=== PATIENT | female | born 1990 | race Caucasian/White ===

== ENCOUNTER 2016-09-02 10:02 | Emergency (ER) | payer OTHER ==
[~2016-09-02] VITALS: Ht 165.1 cm; Wt 68.0 kg
[~2016-09-02 10:02] MED LIST: ACET50TA PO; AMOX500T PO; IBUP80TA PO; PERC5TAB6 PO; TYLE325T5 PO; VITAPRTA PO; no medications
[2016-09-02] MEDS ORDERED: ONDANSETRON 4MG/2ML VIAL (J2405) IV ONE (11:45)
[2016-09-02] MEDS ORDERED: NS 1,000 ML IV ONE (11:45)
[2016-09-02 12:06] LABS: BASO % 0.3 % (0.0-1.0); EOS # 0.2 K/mm3 (0.0-0.50); EOS % 1.9 % (0.0-3.0); LARGE UNSTAINED CELL # 0.1 K/mm3 (0.0-0.4); LARGE UNSTAINED CELL % 1.1 % (0.0-4.0); LYMPH # 2.2 K/mm3 (1.5-6.5); LYMPH % 27.5 % (24.0-44.0); MEAN CORPUSCULAR HEMOGLOBIN 31.1 pg (27.0-33.0); MEAN CORPUSCULAR HGB CONC 33.9 g/dl (32.0-36.5); MEAN CORPUSCULAR VOLUME 91.8 fl (80.0-96.0); MONO # 0.3 K/mm3 (0.0-0.8); MONO % 4.3 % (0.0-5.0); NEUTROPHILS # 5.2 K/mm3 (1.8-7.7); NEUTROPHILS % 64.9 % (36.0-66.0); PLATELET COUNT, AUTOMATED 202 k/mm3 (150-450); RED CELL DISTRIBUTION WIDTH 12.3 % (11.5-14.5)
[2016-09-02 12:22] LABS: ALBUMIN/GLOBULIN RATIO 1.14 (1.00-1.93); ALKALINE PHOSPHATASE 54 U/L (45-117); ALT/SGPT 21 U/L (12-78); AMYLASE 46 U/L (25-115); ANION GAP 6 MEQ/L (8-16); AST/SGOT 14 U/L (15-37); BILIRUBIN,DIRECT < 0.1 MG/DL (0.0-0.2); BILIRUBIN,TOTAL 0.3 MG/DL (0.2-1.0); BLOOD UREA NITROGEN 11 MG/DL (7-18); CALCIUM LEVEL 8.3 MG/DL (8.5-10.1); CARBON DIOXIDE LEVEL 27 MEQ/L (21-32); CHLORIDE LEVEL 107 MEQ/L (98-107); CREATININE FOR GFR 0.68 MG/DL (0.55-1.02); GLOMERULAR FILTRATION RATE > 60.0 (>60); GLUCOSE, FASTING 93 MG/DL (70-105); POTASSIUM SERUM 4.2 MEQ/L (3.5-5.1); SODIUM LEVEL 140 MEQ/L (136-145); TOTAL PROTEIN 7.5 GM/DL (6.4-8.2)
[2016-09-02 12:42] VITALS: BP 120/73
[2016-09-02] MEDS ORDERED: ZOFR4TAB3 PO (12:44)
[2016-09-02] MEDS ORDERED: BENT10CA PO (12:44)
== END 2016-09-02 12:47 | disposition home or self-care (01) ==
LOC: M ED 11:43
DX: R11.2 Nausea with vomiting, unspecified (principal); R10.9 Unspecified abdominal pain; Z90.79 Acquired absence of other genital organ(s); Z88.5 Allergy status to narcotic agent
CPT/HCPCS: 36415; 80048; 80076; 81001; 82150; 83690; 85025; 99282; J2405

== ENCOUNTER 2024-01-13 08:10 | Day surgery (SDC) | payer OTHER ==
[~2024-01-13] VITALS: Ht 165.1 cm; Wt 63.3 kg
[~2024-01-13 08:10] MED LIST changes: -ACET50TA PO; +BENT10CA PO; +BUPR150T12 PO; +CLON-412 PO; +MAPA500T2 PO; +PERC5TAB12 PO; -PERC5TAB6 PO; +SUBL100I SC; +ZOFR4TAB14 PO
[2024-01-13] MEDS ORDERED: LR 1,000 ML IV SCH ×4 (08:25→10:40)
[2024-01-13] MEDS ORDERED: TYLE650T38 PO (08:27)
[2024-01-13] MEDS ORDERED: MIDAZOLAM INJ 2MG/2ML VIAL As Ordered ONE (09:17)
[2024-01-13] MEDS ORDERED: fentaNYL 100 MCG/2 ML INJECTION As Ordered ONE (09:29)
[2024-01-13] MEDS ORDERED: ACETAMINOPHEN 1000MG 100ML IV BAG As Ordered ONE (09:31)
[2024-01-13] MEDS: OXYMETAZOLINE 0.05% NASAL SPRAY (AFRIN) As Ordered ONE (09:35)
[2024-01-13] MEDS: AMPICILLIN SOD/SULBACTAM SOD 3 GM in D5W MINI-BAG PLUS 100 ML IV ONE (09:41)
[2024-01-13] MEDS ORDERED: LIDOCAINE 2% 100MG/5ML SDV (FOR ANES.) As Ordered ONE (09:42)
[2024-01-13] MEDS ORDERED: propofoL 200 MG/20 ML VIAL As Ordered ONE (09:51)
[2024-01-13] MEDS ORDERED: SUGAMMADEX SODIUM 500 MG/5 ML VIAL (BRIDION) As Ordered ONE (09:51)
[2024-01-13] MEDS ORDERED: ONDANSETRON 4MG 2ML VIAL As Ordered ONE (09:51)
[2024-01-13] MEDS ORDERED: dexmedeTOMIDine (4MCG/ML)200MCG/50ML BTL (PRECEDEX) As Ordered ONE (09:51)
[2024-01-13] MEDS: LIDOCAINE 2% W/ EPINEPHRINE 1.7 ML DENTAL INJ As Ordered ONE (09:56)
[2024-01-13] MEDS ORDERED: KETOROLAC 60MG 2ML VIAL As Ordered ONE (10:05)
[2024-01-13] MEDS ORDERED: ROCURONIUM BROMIDE 50MG/5ML VIAL As Ordered ONE (10:08)
[2024-01-13] MEDS ORDERED: oxyCODONE 5MG TAB PO PRN ×2 (10:40)
[2024-01-13] MEDS ORDERED: ONDANSETRON 4MG 2ML VIAL IV PRN ×2 (10:40)
[2024-01-13] MEDS ORDERED: HYDROMORPHONE HCL 0.5 MG/ 0.5 ML SYRINGE IV PRN (10:40)
[2024-01-13] MEDS ORDERED: fentaNYL 100 MCG/2 ML INJECTION IV PRN ×2 (10:40)
[2024-01-13 11:56] VITALS: BP 109/65; TEMP 97.9; O2SAT 99
== END 2024-01-13 12:07 | disposition home or self-care (01) ==
LOC: M SDC 08:10
PROVIDERS: ATTEND Dentist
DX: K02.9 Dental caries, unspecified (principal); F40.232 Fear of other medical care; F32.A Depression, unspecified; R06.83 Snoring; Z88.5 Allergy status to narcotic agent; Z90.711 Acquired absence of uterus with remaining cervical stump; F17.210 Nicotine dependence, cigarettes, uncomplicated; F11.11 Opioid abuse, in remission; Z79.899 Other long term (current) drug therapy
CPT/HCPCS: 88300; C9290; D7140; D7210; D9223; J0131; J0295; J1100; J1885; J2250; J2405; J3010